=== PATIENT | male | born 1960 | race Caucasian/White ===

== ENCOUNTER 2017-07-21 09:47 | Emergency (ER) | payer OTHER ==
[~2017-07-21] VITALS: Ht 177.8 cm; Wt 111.9 kg
[~2017-07-21 09:47] MED LIST changes: -ALBINS/ INH; -AMT/50 PO; -CHOL2000 PO; -GADAVIST IV PRN; -LINA1CAP2 PO; -LTHSR/300 PO; -NRN/600 PO; -OXGN; -RANI300T2 PO; -VENL150T33 PO; -VNTHFA/IN INH
[2017-07-21 09:53] VITALS: TEMP 37.4; Ht 177.8 cm; Wt 111.9 kg
[2017-07-21] MEDS ORDERED: SODIUM CHLORIDE 0.9% 1000ML 1,000 ML IV STA (10:24)
--- NOTE | 2017-07-21 10:30 | EMERGENCY ROOM VISIT NOTE ---
History Report prepared by Valery: Vonnie Vasquez Under the Supervision of: Dr. Chapin Lau M.D. First contact with patient: 10:00 Chief Complaint: BACK PAIN Stated Complaint: BACK PAIN - POSSIBLE KIDNEY STONE History of Present Illness The patient is a 57 year old male who presents to the Emergency Room with complaints of persistent, worsening back pain that began two weeks ago. He currently rates his discomfort as a 9/10 in severity. The patient reports a history of chronic back pain from previous major surgeries. He states that when his new pain developed two weeks ago, he thought his pain was stemming from his chronic pain. The patient states that he was going to ask to be set back up at the pain management clinic. He states that yesterday he thought he possibly could have developed a kidney stone, noting that he has been urinating less. The patient states that he has a history of kidney stones, noting that he usually gets one once per year. He reports that this morning he had a brain MRI for persistent tremors over the past several months and since he was here came to the ED to evaluate with flank/back pain. The patient states that he becomes short of breath with ambulation, but denies that being new. He denies any fever, chills, cough, congestion, chest pain, abdominal pain, nausea, burning with urination, hematuria, diarrhea, or constipation. Source of History: patient Onset: two weeks ago Position: back Symptom Intensity: 9/10 Timing: worsening, other (persistent) Associated Symptoms: No fevers, No chills, No cough, No chest pain, No nausea, No abdominal pain, No diarrhea, No urinary symptoms Review of Systems See HPI for pertinent positives and negatives. A total of ten systems were reviewed and were otherwise negative. Past Medical & Surgical Medical Problems: (1) Chronic back pain (2) COPD (chronic obstructive pulmonary disease) (3) Hematochezia (4) Hypertension (5) JUAN CARLOS on CPAP (6) Pulmonary embolism (7) Walking disability Family History Heart disease Social History Smoking Status: Never Smoker Marital Status: single Occupation Status: disabled Current/Historical Medications Scheduled Alprazolam (Xanax), 0.5 MG PO HS Amitriptyline HCl (Amitriptyline HCl), 75 MG PO DAILY Cholecalciferol (Vitamin D3), 2,000 INTER.UNIT PO DAILY Furosemide (Lasix), 80 MG PO DAILY Gabapentin (Neurontin), 600 MG PO QID Home O2 Therapy (Oxygen), 2 LITERS NA CONTINOUS Linaclotide (Linzess), 290 MCG PO Q2D [place] Carbonate ([place] Carbonate), 300 MG PO BID Multiple Vitamin (Multivitamin), 1 TAB PO DAILY Ranitidine (Zantac), 300 MG PO HS Venlafaxine Hcl (Venlafaxine Hcl Er), 150 MG PO BID Warfarin Sodium (Coumadin), 6 MG PO DAILY Zolpidem Tartrate (Ambien), 2.5 MG PO HS Scheduled PRN Albuterol Hfa (Ventolin Hfa), 2 PUFFS INH Q4H PRN for Shortness of Breath Albuterol Sulf (Proventil 0.083% 2.5MG/3ML), 2.5 MG INH Q4H PRN for Shortness of Breath Hydrocodone/Acetaminophen 5MG/325MG ([place] 5MG/325MG), 1 TABLET PO QID PRN for Pain Allergies Coded Allergies: Morphine (Verified Allergy, Unknown, HIVES, 05/04/15) Baclofen (Verified Adverse Reaction, Unknown, SEDATION, 05/04/15) Oxycodone (Verified Adverse Reaction, Unknown, HALLUCINATIONS, 05/04/15) Physical Exam Vital Signs Date Time Temp Pulse Resp B/P (MAP) Pulse Ox O2 Delivery O2 Flow Rate FiO2 07/21/17 14:48 83 16 135/78 95 07/21/17 13:51 82 07/21/17 13:47 78 14 130/90 97 Room Air 07/21/17 12:43 83 18 124/79 96 Room Air 07/21/17 11:44 90 16 114/85 94 Room Air 07/21/17 10:51 89 14 155/74 92 Room Air 07/21/17 10:51 86 07/21/17 10:51 92 Room Air 07/21/17 09:53 37.4 93 16 128/83 95 Room Air Physical Exam GENERAL: Awake, alert, well-appearing, in no distress HENT: Normocephalic, atraumatic. Dry mucous membranes. EYES: Normal conjunctiva. Sclera non-icteric. NECK: Supple. No nuchal rigidity. FROM. No JVD. RESPIRATORY: Clear to auscultation. CARDIAC: Regular rate, normal rhythm. Extremities warm and well perfused. Pulses equal. ABDOMEN: Soft, non-distended. Mild left flank tenderness otherwise nontender abdomen. No rebound or guarding. No masses. RECTAL: Deferred. MUSCULOSKELETAL: Chest examination reveals no tenderness. The back is symmetrical on inspection without obvious abnormality. There is no CVA tenderness to palpation. No joint edema. LOWER EXTREMITIES: Calves are equal size bilaterally and non-tender. No edema. No discoloration. NEURO: Normal sensorium. No sensory or motor deficits noted. SKIN: No rash or jaundice noted. Medical Decision & Procedures ER Provider Diagnostic Interpretation: Radiology results as stated below per my review and radiologist interpretation: CHEST ONE VIEW PORTABLE CLINICAL HISTORY: CHEST PAIN dyspnea COMPARISON STUDY: 12/03/2013 FINDINGS: Stable ty fixation of the thoracolumbar spine. This is unchanged from the prior study. Lungs are clear. Diaphragms are smooth. No evidence for cardiac enlargement. IMPRESSION: No acute process. Stable postoperative changes to the spine. The above report was generated using voice recognition software. It may contain grammatical, syntax or spelling errors. Electronically signed by: Jaspreet Laura M.D. 07/21/2017 10:49 AM Dictated Date/Time: 07/21/2017 10:48 AM ABDOMEN AND PELVIS CT WITH IV CONTRAST CT DOSE: 1014.87 mGycm HISTORY: left flank pain. TECHNIQUE: Multiaxial CT images of the abdomen and pelvis were performed following the use of intravenous contrast. A dose lowering technique was utilized adhering to the principles of ALARA. COMPARISON STUDY: None. FINDINGS: Bilateral lower lobe linear densities consistent with subsegmental atelectasis or scarring. No pneumoperitoneum. No pneumatosis. No suspicious lytic or blastic osseous lesions. Posterior decompression fusion from T12 through S1 with pedicle screws and rods. Levoscoliosis of the lumbar spine. Partially visualized thoracic spinal ty is noted. Small fat-containing left inguinal hernia. Prior right inguinal hernia repair. Suture material within the stomach. The gallbladder is not identified and is likely surgically absent. This may account for the mild central intrahepatic bile duct dilatation. The spleen, adrenal glands, pancreas are unremarkable. There are few subcentimeter hypodense lesions within the kidneys which are too small to characterize. A 4 mm stone within the lower pole of the right kidney. No ureteral calculi. No hydronephrosis. Of note, there is contrast within the bilateral renal collecting systems, bilateral ureters, and bladder. This could obscure a stone. No definite left renal calculi. No retroperitoneal lymphadenopathy. An IVC filter is noted. Large amount of well-formed stool seen throughout the colon. No definite bowel wall thickening or obstruction. The appendix appears to be surgically absent. IMPRESSION: 1. A 4 mm stone within the lower pole of the right kidney. No definite ureteral calculi. No hydronephrosis. Of note, there is contrast within the urinary system which could obscure a stone. 2. Large amount well-formed stool seen within the colon. 3. No evidence for bowel wall thickening or obstruction. 4. Additional findings as described above. Electronically signed by: Celso Chaves M.D. 07/21/2017 12:18 PM Dictated Date/Time: 07/21/2017 12:07 PM Laboratory Results 07/21/17 10:30 Red Blood Count 4.73, Mean Corpuscular Volume 93.9, Mean Corpuscular Hemoglobin 31.1, Mean Corpuscular Hemoglobin Concent 33.1, Mean Platelet Volume 9.7, Neutrophils (%) (Auto) 48.7, Lymphocytes (%) (Auto) 36.7, Monocytes (%) (Auto) 9.5, Eosinophils (%) (Auto) 4.5, Basophils (%) (Auto) 0.5, Neutrophils # (Auto) 3.80, Lymphocytes # (Auto) 2.87, Monocytes # (Auto) 0.74, Eosinophils # (Auto) 0.35, Basophils # (Auto) 0.04 07/21/17 10:30 Test 07/21/17 10:30 07/21/17 13:30 07/21/17 14:44 White Blood Count 7.81 K/uL (4.8-10.8) Red Blood Count 4.73 M/uL (4.7-6.1) Hemoglobin 14.7 g/dL (14.0-18.0) Hematocrit 44.4 % (42-52) Mean Corpuscular Volume 93.9 fL (80-100) Mean Corpuscular Hemoglobin 31.1 pg (25-34) Mean Corpuscular Hemoglobin Concent 33.1 g/dl (32-36) Platelet Count 260 K/uL (130-400) Mean Platelet Volume 9.7 fL (7.4-10.4) Neutrophils (%) (Auto) 48.7 % Lymphocytes (%) (Auto) 36.7 % Monocytes (%) (Auto) 9.5 % Eosinophils (%) (Auto) 4.5 % Basophils (%) (Auto) 0.5 % Neutrophils # (Auto) 3.80 K/uL (1.4-6.5) Lymphocytes # (Auto) 2.87 K/uL (1.2-3.4) Monocytes # (Auto) 0.74 K/uL (0.11-0.59) Eosinophils # (Auto) 0.35 K/uL (0-0.5) Basophils # (Auto) 0.04 K/uL (0-0.2) RDW Standard Deviation 45.6 fL (36.4-46.3) RDW Coefficient of Variation 13.2 % (11.5-14.5) Immature Granulocyte % (Auto) 0.1 % Immature Granulocyte # (Auto) 0.01 K/uL (0.00-0.02) Prothrombin Time 21.4 SECONDS (9.0-12.0) Prothromb Time International Ratio 1.9 (0.9-1.1) Anion Gap 3.0 mmol/L (3-11) Est Creatinine Clear Calc Drug Dose 86.1 ml/min Estimated GFR () 77.9 Estimated GFR (Non- 67.2 BUN/Creatinine Ratio 16.1 (10-20) Calcium Level 8.8 mg/dl (8.5-10.1) Total Bilirubin 0.3 mg/dl (0.2-1) Direct Bilirubin < 0.1 mg/dl (0-0.2) Aspartate Amino Transf (AST/SGOT) 12 U/L (15-37) Alanine Aminotransferase (ALT/SGPT) 25 U/L (12-78) Alkaline Phosphatase 68 U/L (45-117) Troponin I < 0.015 ng/ml (0-0.045) Total Protein 7.7 gm/dl (6.4-8.2) Albumin 4.2 gm/dl (3.4-5.0) Lipase 279 U/L (73-393) Urine Color YELLOW Urine Appearance CLEAR (CLEAR) Urine pH 7.5 (4.5-7.5) Urine Specific [place] > 1.045 (1.000-1.030) Urine Protein NEG (NEG) Urine Glucose (UA) NEG (NEG) Urine Ketones NEG (NEG) Urine Occult Blood NEG (NEG) Urine Nitrite NEG (NEG) Urine Bilirubin NEG (NEG) Urine Urobilinogen NEG (NEG) Urine Leukocyte Esterase NEG (NEG) [place] Level 0.6 mMOL/L (0.6-1.2) Laboratory results reviewed by me Medications Administered Medications (Trade) Dose Ordered Sig/[place] Route Start Time Stop Time Status Last Admin Dose Admin Sodium Chloride 1,000 ml @ 125 mls/hr Q8H STAT IV 07/21/17 10:24 07/21/17 15:09 DC 07/21/17 10:33 125 MLS/HR ECG Indication: back/shoulder pain Rate (beats per minute): 86 Rhythm: normal sinus Findings: no acute ischemic change, other (normal axis) ED Course 1005: The patient was evaluated in room A2. A complete history and physical exam was performed. 1024: Ordered Sodium Chloride 1000 ml @ 125 mls/hr IV. 1420: I reevaluated the patient and he is resting comfortably. I discussed the exam findings with him and I discussed the treatment plan. He verbalized complete understanding and agreement. He is ready to go home. Medical Decision I reviewed the patient's past medical history, medications, and the nursing notes as described above. The patient's presentation and history were concerning for Renal stone, UTI, pyelonephritis, diverticulitis, pneumonia, bronchitis, ACS, CHF, PE. The patient is a 57 y/o man with pmhx of chronic back pain, h/o PE on coumadin, peripheral edema on lasix, copd, JUAN CARLOS who presents to the ED with left flank pain per HPI. On arrival the patient is in NAD, AFVSS. Mild left flank ttp but otherwise benign abd. WBC wnl. EKG and trop unremarkable in the setting of 2 weeks of constant sx. CXR negative. CT abd pelvis with right renal calculus but otherwise no acute findings to explain patient's pain. Unclear etiology to patients complaint at this time. However w/u reassuring of no emergent process. Findings and plan for follow-up d/w patient. Patient agreeable and d/c' d per discharge instructions. Medication Reconcilliation Current Medication List: was personally reviewed by me Blood Pressure Screening Patient's blood pressure: Normal blood pressure Blood pressure disposition: Did not require urgent referral Impression Primary Impression: Flank pain Scribe Attestation The scribe's documentation has been prepared under my direction and personally reviewed by me in its entirety. I confirm that the note above accurately reflects all work, treatment, procedures, and medical decision making performed by me. Departure Information Dispostion Home / Self-Care Referrals Rahul Nice D.O. (PCP) Forms HOME CARE DOCUMENTATION FORM, IMPORTANT VISIT INFORMATION Patient Instructions ED Flank Pain Uncertain Cause, My [facility] Additional Instructions Please follow up with your primary care physician in the next 1-3 days for re- evaluation. Your symptoms may be due to a muscular strain. Otherwise, your exam, EKG, chest xray, CT scan, and lab results did not show signs of an emergent condition at this time. Continue your current medications. Apply heating pad at 20 minute intervals for additional muscle relaxation and pain relief as needed. Return to the emergency department for worsening symptoms as described in the accompanying instructions. ABDOMEN AND PELVIS CT WITH IV CONTRAST CT DOSE: 1014.87 mGycm HISTORY: left flank pain. TECHNIQUE: Multiaxial CT images of the abdomen and pelvis were performed following the use of intravenous contrast. A dose lowering technique was utilized adhering to the principles of ALARA. COMPARISON STUDY: None. FINDINGS: Bilateral lower lobe linear densities consistent with subsegmental atelectasis or scarring. No pneumoperitoneum. No pneumatosis. No suspicious lytic or blastic osseous lesions. Posterior decompression fusion from T12 through S1 with pedicle screws and rods. Levoscoliosis of the lumbar spine. Partially visualized thoracic spinal ty is noted. Small fat-containing left inguinal hernia. Prior right inguinal hernia repair. Suture material within the stomach. The gallbladder is not identified and is likely surgically absent. This may account for the mild central intrahepatic bile duct dilatation. The spleen, adrenal glands, pancreas are unremarkable. There are few subcentimeter hypodense lesions within the kidneys which are too small to characterize. A 4 mm stone within the lower pole of the right kidney. No ureteral calculi. No hydronephrosis. Of note, there is contrast within the bilateral renal collecting systems, bilateral ureters, and bladder. This could obscure a stone. No definite left renal calculi. No retroperitoneal lymphadenopathy. An IVC filter is noted. Large amount of well-formed stool seen throughout the colon. No definite bowel wall thickening or obstruction. The appendix appears to be surgically absent.
--- NOTE | 2017-07-21 10:50 | DIAGNOSTIC IMAGING REPORT ---
CHEST ONE VIEW PORTABLE CLINICAL HISTORY: CHEST PAIN dyspnea COMPARISON STUDY: 12/03/2013 FINDINGS: Stable ty fixation of the thoracolumbar spine. This is unchanged from the prior study. Lungs are clear. Diaphragms are smooth. No evidence for cardiac enlargement. IMPRESSION: No acute process. Stable postoperative changes to the spine. The above report was generated using voice recognition software. It may contain grammatical, syntax or spelling errors. Electronically signed by: Jaspreet Laura M.D. 07/21/2017 10:49 AM Dictated Date/Time: 07/21/2017 10:48 AM
[2017-07-21 10:51] VITALS: O2SAT 92
[2017-07-21 11:02] LABS: BASO % 0.5 %; BASO ABS # 0.04 K/uL (0-0.2); COMPLETE YES; EOS % 4.5 %; HEMATOCRIT 44.4 % (42-52); IG% 0.1 %; LYMPH % 36.7 %; LYMPH ABS # 2.87 K/uL (1.2-3.4); MEAN CELL VOLUME 93.9 fL (80-100); MEAN CORPUSCULAR HEMOGLOBIN 31.1 pg (25-34); MEAN CORPUSCULAR HGB CONC 33.1 g/dl (32-36); MEAN PLATELET VOLUME 9.7 fL (7.4-10.4); MONO % 9.5 %; NEUT % 48.7 %; PLATELET COUNT 260 K/uL (130-400); RED BLOOD COUNT 4.73 M/uL (4.7-6.1); WHITE BLOOD COUNT 7.81 K/uL (4.8-10.8)
[2017-07-21] MEDS ORDERED: VENL150T33 PO (11:03)
[2017-07-21] MEDS ORDERED: CHOL2000 PO (11:03)
[2017-07-21] MEDS ORDERED: OXGN (11:03)
[2017-07-21] MEDS ORDERED: LINA1CAP2 PO (11:03)
[2017-07-21] MEDS ORDERED: LTHSR/300 PO (11:03)
[2017-07-21] MEDS ORDERED: AMT/50 PO (11:03)
[2017-07-21] MEDS ORDERED: VNTHFA/IN INH (11:03)
[2017-07-21] MEDS ORDERED: NRN/600 PO (11:03)
[2017-07-21] MEDS ORDERED: ALPR1TAB3 PO (11:03)
[2017-07-21] MEDS ORDERED: ALBINS/ INH (11:03)
[2017-07-21] MEDS ORDERED: RANI300T2 PO (11:03)
[2017-07-21 11:11] LABS: INR 1.9 (0.9-1.1); PROTHROMBIN TIME (PATIENT) 21.4 SECONDS (9.0-12.0)
[2017-07-21] MEDS ORDERED: OPTIRAY 320 IV PRN (11:15)
[2017-07-21 11:21] LABS: ALKALINE PHOSPHATASE 68 U/L (45-117); ALT/SGPT 25 U/L (12-78); BLOOD UREA NITROGEN 19 mg/dl (7-18); BUN/CREATININE RATIO 16.1 (10-20); CALCIUM 8.8 mg/dl (8.5-10.1); CARBON DIOXIDE 30 mmol/L (21-32); CHLORIDE 105 mmol/L (98-107); GLUCOSE 87 mg/dl (70-99)
[2017-07-21 11:24] LABS: POTASSIUM 3.6 mmol/L (3.5-5.1); SODIUM 138 mmol/L (136-145)
[2017-07-21 11:29] LABS: AST/SGOT 12 U/L (15-37)
--- NOTE | 2017-07-21 12:19 | DIAGNOSTIC IMAGING REPORT ---
ABDOMEN AND PELVIS CT WITH IV CONTRAST CT DOSE: 1014.87 mGycm HISTORY: left flank pain. TECHNIQUE: Multiaxial CT images of the abdomen and pelvis were performed following the use of intravenous contrast. A dose lowering technique was utilized adhering to the principles of ALARA. COMPARISON STUDY: None. FINDINGS: Bilateral lower lobe linear densities consistent with subsegmental atelectasis or scarring. No pneumoperitoneum. No pneumatosis. No suspicious lytic or blastic osseous lesions. Posterior decompression fusion from T12 through S1 with pedicle screws and rods. Levoscoliosis of the lumbar spine. Partially visualized thoracic spinal ty is noted. Small fat-containing left inguinal hernia. Prior right inguinal hernia repair. Suture material within the stomach. The gallbladder is not identified and is likely surgically absent. This may account for the mild central intrahepatic bile duct dilatation. The spleen, adrenal glands, pancreas are unremarkable. There are few subcentimeter hypodense lesions within the kidneys which are too small to characterize. A 4 mm stone within the lower pole of the right kidney. No ureteral calculi. No hydronephrosis. Of note, there is contrast within the bilateral renal collecting systems, bilateral ureters, and bladder. This could obscure a stone. No definite left renal calculi. No retroperitoneal lymphadenopathy. An IVC filter is noted. Large amount of well-formed stool seen throughout the colon. No definite bowel wall thickening or obstruction. The appendix appears to be surgically absent. IMPRESSION: 1. A 4 mm stone within the lower pole of the right kidney. No definite ureteral calculi. No hydronephrosis. Of note, there is contrast within the urinary system which could obscure a stone. 2. Large amount well-formed stool seen within the colon. 3. No evidence for bowel wall thickening or obstruction. 4. Additional findings as described above. Electronically signed by: Celso Chaves M.D. 07/21/2017 12:18 PM Dictated Date/Time: 07/21/2017 12:07 PM
[2017-07-21 14:04] LABS: URINE APPEARANCE CLEAR (CLEAR); URINE BILIRUBIN NEG (NEG); URINE COLOR YELLOW; URINE NITRITE NEG (NEG); URINE PH 7.5 (4.5-7.5); URINE SPECIFIC GRAVITY > 1.045 (1.000-1.030); UROBILINOGEN NEG (NEG); ZZUR CULT IF INDIC CLEAN CATCH NO
[2017-07-21 14:08] LABS: MANUAL MICROSCOPIC REQUIRED? NO; REVIEW REQ? NO
[2017-07-21] MEDS ORDERED: HYDROCODONE/ACETAMOPHEN 5/325MG TAB PO STA (14:26)
[2017-07-21 14:48] VITALS: BP 135/78; PULSE 83; O2SAT 95
== END 2017-07-21 14:50 | disposition home or self-care (01) ==
LOC: C.EDB 09:48 → C.EDA 14:50
DX: R10.30 Lower abdominal pain, unspecified (principal); G89.29 Other chronic pain; M54.9 Dorsalgia, unspecified; I10 Essential (primary) hypertension; J44.9 Chronic obstructive pulmonary disease, unspecified; G47.33 Obstructive sleep apnea (adult) (pediatric); Z86.711 Personal history of pulmonary embolism; Z79.01 Long term (current) use of anticoagulants; Z79.899 Other long term (current) drug therapy; Z88.5 Allergy status to narcotic agent; Z88.8 Allergy status to other drugs, medicaments and biological substances; Z82.49 Family history of ischemic heart disease and other diseases of the circulatory system; R25.1 Tremor, unspecified

== ENCOUNTER → 2017-07-21 | Outpatient (CLI) | payer OTHER ==
[~2017-07-21] MED LIST: ABL5 PO; ALBINS/ INH; ALBU0.08 INH; ALBU1AER9; ALPR1TAB3 PO; AMT/50 PO; AMT50 PO; CHOL2000 PO; CYCL10TA6 PO; CZR50 PO; DFL100 PO; EFFSR75 PO; FURO40TA3 PO; GABA-112 PO; GADAVIST IV PRN; HYDR-5688 PO; LINA1CAP; LINA1CAP2 PO; LTHSR/300 PO; METO2.5T PO; METO50TA16 PO; MOME50SP5 NAE; MULTTAB58 PO; NRN/600 PO; OXGN; PANT40TA PO; RANI300T2 PO; SUCR1TAB PO; TIOTCAP INH; TRC145 PO; TRIA3AER NAE; VENL150T33 PO; VNTHFA/IN INH; WARF6TAB PO; ZOLP5TAB PO
--- NOTE | 2017-07-21 10:03 | DIAGNOSTIC IMAGING REPORT ---
Brain MRI WITH AND WITHOUT CONTRAST HISTORY: Tremors. TECHNIQUE: Multiplanar multisequence MRI of the brain was performed both before and after the intravenous administration of contrast. COMPARISON STUDY: None. FINDINGS: There are no areas of restricted diffusion to suggest acute infarction. The midline structures are intact. The paranasal sinuses are clear. The mastoid air cells are clear. The ventricles and sulci are within normal limits for age. There is no mass, hematoma, midline shift. The major vascular flow-voids at the skull base are well maintained. Punctate focus of enhancement within the left high convexity best seen on coronal image 10 may represent artifact or a tiny developmental venous anomaly. This is considered to be a normal variant. IMPRESSION: No acute intracranial abnormality. Electronically signed by: Celso Chaves M.D. 07/21/2017 10:02 AM Dictated Date/Time: 07/21/2017 9:43 AM
== END | disposition home or self-care (01) ==
LOC: C.MRI 08:42
PROVIDERS: ATTEND Physician Assistant
DX: R25.1 Tremor, unspecified (principal)

== ENCOUNTER → 2017-09-13 | Outpatient (CLI) | payer OTHER ==
[~2017-09-13] MED LIST changes: -ABL5 PO; +ALBINS/ INH; -ALBU0.08 INH; -ALBU1AER9; +AMT/50 PO; -AMT50 PO; +CHOL2000 PO; +COUMADIN PO; +CYAN100020 PO; -CYCL10TA6 PO; -CZR50 PO; -DFL100 PO; -EFFSR75 PO; +FENO145T26 PO; -GABA-112 PO; -LINA1CAP; +LINA1CAP2 PO; +LITH600C PO; +LTHSR/300 PO; -METO2.5T PO; -METO50TA16 PO; -MOME50SP5 NAE; +NITR1CAP32 PO; +NRN/600 PO; +OXGN; -PANT40TA PO; +RANI300T2 PO; -SUCR1TAB PO; -TIOTCAP INH; -TRC145 PO; -TRIA3AER NAE; +VENL150T33 PO; +VNTHFA/IN INH; +gabapentin PO
[2017-09-13 11:16] LABS: PROTHROMBIN TIME (PATIENT) 10.9 SECONDS (9.0-12.0)
== END | disposition home or self-care (01) ==
LOC: C.LAB 10:36
PROVIDERS: ATTEND Physician Assistant
DX: Z01.812 Encounter for preprocedural laboratory examination (principal)

== ENCOUNTER → 2018-06-21 | Day surgery (SDC) | payer OTHER ==
[2018-06-05 09:42] VITALS: BMI 36.0
--- NOTE | 2018-06-06 16:08 | PAT Medication Instructions ---
Service Date Jun 06, 2018. Current Home Medication List Albuterol Hfa (Ventolin Hfa), 2 PUFFS INH Q4H PRN for Shortness of Breath Albuterol Sulf (Proventil 0.083% 2.5MG/3ML), 2.5 MG INH Q4H PRN for Shortness of Breath Alfuzosin Hcl (Uroxatral), 10 MG PO QPM Cyanocobalamin (Vitamin B12), 1 TAB PO QAM Finasteride (Proscar), 5 MG PO HS Furosemide (Lasix), 40 MG PO BID Gabapentin (Neurontin), 600 MG PO QID Hydrocodone/Acetaminophen 5MG/325MG ([place] 5MG/325MG), 1 TABLET PO QID Linaclotide (Linzess), 290 MCG PO Q2D PRN for CONSTIPATION [place] Carbonate ([place] Carbonate), 300 MG PO QAM [place] Carbonate ([place] Carbonate), 600 MG PO HS Quetiapine Fumarate (Seroquel), 50 MG PO HS Ranitidine (Zantac), 300 MG PO HS Tadalafil (Cialis), 10 MG PO UD Venlafaxine Hcl (Venlafaxine Hcl Er), 300 MG PO QAM Warfarin Sodium (Coumadin), 1 TAB PO [id number] Medication Instructions For Your Scheduled Surgery - Check with surgeon and prescribing physician for instructions: Warfarin Sodium (Coumadin), 1 TAB PO [id number] - Hold the following medications the morning of surgery: Tadalafil (Cialis), 10 MG PO UD Linaclotide (Linzess), 290 MCG PO Q2D PRN for CONSTIPATION Furosemide (Lasix), 40 MG PO BID Cyanocobalamin (Vitamin B12), 1 TAB PO QAM - Take the following medications the morning of surgery with a sip of water: Albuterol Hfa (Ventolin Hfa), 2 PUFFS INH Q4H PRN for Shortness of Breath (if needed) Albuterol Sulf (Proventil 0.083% 2.5MG/3ML), 2.5 MG INH Q4H PRN for Shortness of Breath (if needed) Gabapentin (Neurontin), 600 MG PO QID Hydrocodone/Acetaminophen 5MG/325MG ([place] 5MG/325MG), 1 TABLET PO QID (okay to take up to 4 hours prior to surgery if needed) [place] Carbonate ([place] Carbonate), 300 MG PO QAM Venlafaxine Hcl (Venlafaxine Hcl Er), 300 MG PO QAM - Take the following medications as scheduled the night before surgery: Tadalafil (Cialis), 10 MG PO UD (if needed) Ranitidine (Zantac), 300 MG PO HS [place] Carbonate ([place] Carbonate), 600 MG PO HS Quetiapine Fumarate (Seroquel), 50 MG PO HS Hydrocodone/Acetaminophen 5MG/325MG ([place] 5MG/325MG), 1 TABLET PO QID Gabapentin (Neurontin), 600 MG PO QID Furosemide (Lasix), 40 MG PO BID Finasteride (Proscar), 5 MG PO HS Alfuzosin Hcl (Uroxatral), 10 MG PO QPM Albuterol Hfa (Ventolin Hfa), 2 PUFFS INH Q4H PRN for Shortness of Breath (if needed) Albuterol Sulf (Proventil 0.083% 2.5MG/3ML), 2.5 MG INH Q4H PRN for Shortness of Breath (if needed) If you have any questions please call us at [phone] or [phone] or [phone]
[2018-06-07 09:04] VITALS: BMI 35.0
--- NOTE | 2018-06-07 10:02 | DIAGNOSTIC IMAGING REPORT ---
CHEST 2 VIEWS ROUTINE CLINICAL HISTORY: PAT preoperative evaluation COMPARISON STUDY: 07/21/2017 FINDINGS: Lungs are clear. Operative changes to the thoracolumbar spine are stable no acute infiltrate. IMPRESSION: Chronic and postoperative change. No acute process. The above report was generated using voice recognition software. It may contain grammatical, syntax or spelling errors. Electronically signed by: Jaspreet Laura M.D. 06/07/2018 10:01 AM Dictated Date/Time: 06/07/2018 10:00 AM
[2018-06-07 10:56] LABS: BASO % 0.5 %; BASO ABS # 0.05 K/uL (0-0.2); EOS % 2.9 %; EOS ABS # 0.29 K/uL (0-0.5); HEMOGLOBIN 13.3 g/dL (14.0-18.0); IG# 0.02 K/uL (0.00-0.02); LYMPH % 31.7 %; LYMPH ABS # 3.15 K/uL (1.2-3.4); MEAN CORPUSCULAR HEMOGLOBIN 30.5 pg (25-34); MEAN CORPUSCULAR HGB CONC 32.4 g/dl (32-36); MEAN PLATELET VOLUME 9.8 fL (7.4-10.4); MONO % 11.6 %; MONO ABS # 1.15 K/uL (0.11-0.59); NEUT % 53.1 %; NEUT ABS # 5.28 K/uL (1.4-6.5); PLATELET COUNT 289 K/uL (130-400); RED CELL DISTRIBUTION WIDTH CV 14.4 % (11.5-14.5); RED CELL DISTRIBUTION WIDTH SD 49.4 fL (36.4-46.3); WHITE BLOOD COUNT 9.94 K/uL (4.8-10.8)
[2018-06-07 11:04] LABS: CALCIUM 8.9 mg/dl (8.5-10.1); CREATININE 1.13 mg/dl (0.60-1.40); POTASSIUM 4.2 mmol/L (3.5-5.1)
[~2018-06-21] VITALS: Ht 175.3 cm; Wt 108.5 kg
[~2018-06-21] MED LIST changes: +ALFU10TA2 PO; -ALPR1TAB3 PO; -AMT/50 PO; +ATROPINE SULFATE 0.1 MG/ML 5ML SYR IV PRN; +BELLADONNA/OPIUM SUPP 60 MG SUPP PR PRN; -CHOL2000 PO; +CIPR1TAB10 PO; +CIPROFLOXACIN / D5W 400 MG IV SCH; -COUMADIN PO; +EpHEDrine SULFATE INJ 50 MG/ML AMP IV PRN; -FENO145T26 PO; +FENTANYL CITRATE INJ 50 MCG/1 ML 2 ML VIAL IV PRN; +FENTANYL CITRATE INJ 50 MCG/1 ML 2 ML VIAL ONE; +FINA5TAB PO; +HYDROCODONE/ACETAMIN 5/325MG TAB PO PRN; +HYDROmorphone INJ 1 MG/ML SYR IV PRN; +LABETALOL HCL IV 5 MG/ML 20ML IV PRN; +LACTATED RINGER'S 1000ML 1,000 ML IV SCH; +LIDOCAINE HCL 2% 2 ML VIAL (20MG/ML) ONE; +MEPERIDINE HCL 25 MG/ML CARP IV PRN; +MIDAZOLAM HCL 1 MG/ML 2ML VIAL ONE; -MULTTAB58 PO; -NITR1CAP32 PO; +ONDANSETRON INJ 2 MG/ML 2 ML VIAL IV PRN; -OXGN; +PHEN-775 PO; +PHENAZOPYRIDINE HCL 200 MG TAB PO PRN; +PROPOFOL IV EMULSION 10 MG/ML 20 ML VIAL ONE; +QUET1TAB32 PO; +TADA10TA PO; -ZOLP5TAB PO; -gabapentin PO; +lovenox SC
[2018-06-21 08:23] VITALS: BP 126/81; PULSE 85; TEMP 37.8; O2SAT 93; Ht 175.3 cm; Wt 108.5 kg
[2018-06-21 08:45] LABS: PTT PATIENT 29.4 SECONDS (21.0-31.0)
--- NOTE | 2018-06-21 10:00 | History & Physical Bridge Note ---
H&P Re-Evaluation Bridge Note: I have examined the patient, reviewed the History & Physical and in the interval since the performance of the History & Physical I have noted the following changes of clinical significance: No changes noted
--- NOTE | 2018-06-21 10:53 | Discharge Instructions ---
Discharge Instructions Date of Service Jun 21, 2018. Admission Reason for Admission: Benign Prostatic Hypertrophy Discharge Discharge Diagnosis / Problem: BPH s/p Urolift implant Discharge Goals Goal(s): Improve function, Improve disease control, Therapeutic intervention Activity Recommendations Activity Limitations: as noted below Lifting Limitations: no more than 25 pounds, gradually increase as tolerated Exercise/Sports Limitations: rest today, gradually increase as tolerated May Resume Sexual Activity: after follow-up appointment Shower/Bathe: no limitations Driving or Machine Use: resume 1 day after discharge . Instructions / Follow-Up Instructions / Follow-Up Follow-up in office as scheduled Current Hospital Diet Patient's current hospital diet: Discharge Diet Recommended Diet: Regular Diet (good fluid intake) Procedures Procedures Performed: Cystoscopy, Urolift Implant x 4 Pending Studies Studies pending at discharge: no Medical Emergencies . Who to Call and When: Medical Emergencies: If at any time you feel your situation is an emergency, please call 911 immediately. . Non-Emergent Contact Non-Emergency issues call your: Urologist Call Non-Emergent contact if: you have a fever, temperature is above 101, your pain is not controlled, your pain is worsening, your pain is unusual for you, your pain is concerning you, you have any medication questions . . "Provider Documentation" section prepared by Adan Domingo. . [place] Drug Monitoring Program Search Results: patient reviewed within database (regular Rx for hydrocodone - can use for postop analegesia)
--- NOTE | 2018-06-21 11:09 | [facility] Operative Report ---
Operative Report Operative Date Jun 21, 2018. Pre-Operative Diagnosis Benign prostastic Hyperplasia with urinary obstruction Post-Operative Diagnosis Benign prostastic Hyperplasia with urinary obstruction Procedure(s) Performed Cystoscopy, Urolift Implant x [address] Kriss Domingo Line Analyst Surgeon(s) none Estimated Blood Loss 0mL Findings Open prostatic fossa after Urolift implants 4 Specimens none per surgeon Drains None Anesthesia Type MAC Complication(s) none Disposition yes Recovery Room / PACU Indications 58-year-old male with refractory voiding symptoms here for Urolift implantation due to persistent voiding bother. Please see H&P for further details. Intravenous ciprofloxacin provided for antibiotic coverage today and SCDs used for DVT prophylaxis. Description of Procedure Patient was properly identified and brought into the operative suite after identification of appropriate consent in chart. Monitored anesthesia care with sedation was initiated and patient was prepped and draped in the standard fashion for this procedure. Full timeout procedure was followed. Urolift scope was introduced into the bladder under direct visualization demonstrating a short, obstructive prostate gland the lateral lobe hypertrophy and without intravesical elements. Bladder was surveyed in its entirety demonstrating no intravesical lesions, papillary masses or calculi. Urolift implants were placed 4, bilaterally at the bladder neck and the level of the verumontanum. Reinspection with a visual obturator after completion of procedure demonstrated excellent opening of the prostatic urethra with good purchase of the implants in good compression of the prostate tissue. Minimal bleeding was appreciated. Bladder was drained and cystoscope was removed. Anesthesia was reversed and patient was transferred to the recovery room in stable condition. Follow-up instructions: Patient will be discharged home with a prescription for ciprofloxacin and Pyridium. Void prior to discharge home. Outpatient appointment confirmed. Patient is instructed to contact her service should he note any fevers, chills, nausea, vomiting or other difficulties in the postoperative period. I attest to the content of the Intraoperative Record and any orders documented therein. Any exceptions are noted below.
[2018-06-21 11:12] VITALS: BP 131/82; PULSE 85; TEMP 37; O2SAT 95
--- NOTE | 2018-06-21 13:35 | Anesthesiology Progress Note ---
Anesthesia Post Op Note Date & Time Jun 21, 2018 at 13:34 Vital Signs Pain Intensity: 0 Vital Signs Past 12 Hours Date Time Temp Pulse Resp B/P (MAP) Pulse Ox O2 Delivery O2 Flow Rate FiO2 06/21/18 11:12 37 85 18 131/82 95 Room Air 06/21/18 08:23 37.8 85 18 126/81 (96) 93 Room Air Notes Mental Status: alert / awake / arousable, participated in evaluation Pt Amnestic to Procedure: Yes Nausea / Vomiting: adequately controlled Pain: adequately controlled Airway Patency, RR, SpO2: stable & adequate BP & HR: stable & adequate Hydration State: stable & adequate Anesthetic Complications: no major complications apparent
== END | disposition home or self-care (01) ==
LOC: C.ACU 07:56
PROVIDERS: ATTEND Urology
DX: N40.1 Benign prostatic hyperplasia with lower urinary tract symptoms (principal); N13.8 Other obstructive and reflux uropathy; Z98.84 Bariatric surgery status; Z99.89 Dependence on other enabling machines and devices; M19.90 Unspecified osteoarthritis, unspecified site; E66.01 Morbid (severe) obesity due to excess calories; Z86.711 Personal history of pulmonary embolism; Z88.5 Allergy status to narcotic agent; Z87.442 Personal history of urinary calculi; Z90.49 Acquired absence of other specified parts of digestive tract